=== PATIENT | male | born 1965 | race Two or more races ===

== ENCOUNTER 2023-09-06 20:08 | Emergency (ER) | payer MEDICAID, OTHER ==
[~2023-09-06] VITALS: Ht 154.9 cm; Wt 113.0 kg
[2023-09-07 00:28] VITALS: BP 118/69; PULSE 95; RESP 18; O2SAT 98
[2023-09-07] MEDS: HYDROcodone-ACET 5/325MG TAB PO ONE (00:49)
[2023-09-07] MEDS: ONDANSETRON ODT 4 MG TAB PO ONE (00:50)
== END 2023-09-07 00:56 | disposition home or self-care (01) ==
LOC: ER 20:08
DX: S46.912A Strain of unspecified muscle, fascia and tendon at shoulder and upper arm level, left arm, initial encounter (principal); I11.0 Hypertensive heart disease with heart failure; I50.9 Heart failure, unspecified; I25.10 Atherosclerotic heart disease of native coronary artery without angina pectoris; I25.2 Old myocardial infarction; E78.5 Hyperlipidemia, unspecified; G89.29 Other chronic pain; M54.50 Low back pain, unspecified; M25.562 Pain in left knee; M25.561 Pain in right knee; M79.642 Pain in left hand; M79.641 Pain in right hand; W05.0XXA Fall from non-moving wheelchair, initial encounter; Y93.89 Activity, other specified; Y92.89 Other specified places as the place of occurrence of the external cause; Y99.8 Other external cause status
CPT/HCPCS: 99283; Q0162

== ENCOUNTER 2023-09-09 18:32 | Emergency (ER) | payer MEDICAID ==
[~2023-09-09] VITALS: Ht 180.3 cm; Wt 109.0 kg
[2023-09-09 18:50] VITALS: BP 161/88; PULSE 99; RESP 18; TEMP 98.7; O2SAT 98
[2023-09-09] MEDS: HYDROcodone-ACET 10/325MG TAB PO ONE (20:38)
[2023-09-09] MEDS ORDERED: HYDR-4798 PO (21:30)
== END 2023-09-10 01:14 | disposition home or self-care (01) ==
LOC: ER 18:32
DX: M13.812 Other specified arthritis, left shoulder (principal); I11.0 Hypertensive heart disease with heart failure; I50.9 Heart failure, unspecified; J44.9 Chronic obstructive pulmonary disease, unspecified; E78.5 Hyperlipidemia, unspecified; F12.10 Cannabis abuse, uncomplicated; Z88.0 Allergy status to penicillin; Z88.8 Allergy status to other drugs, medicaments and biological substances; Z91.040 Latex allergy status; Z59.00 Homelessness unspecified
CPT/HCPCS: 73030

== ENCOUNTER 2023-12-02 22:34 | Emergency (ER) | payer MEDICAID ==
[~2023-12-02] VITALS: Ht 180.3 cm; Wt 109.0 kg
[~2023-12-02 22:34] MED LIST: HYDR-4798 PO
[2023-12-03 04:33] VITALS: BP 127/80; PULSE 73; RESP 16; TEMP 97.9; O2SAT 100
[2023-12-03] MEDS: HYDROcodone-ACET 10/325MG TAB PO ONE (04:36)
== END 2023-12-03 03:31 | disposition home or self-care (01) ==
LOC: ER 22:34
DX: M19.042 Primary osteoarthritis, left hand (principal); M19.041 Primary osteoarthritis, right hand; I11.0 Hypertensive heart disease with heart failure; I50.9 Heart failure, unspecified; J44.9 Chronic obstructive pulmonary disease, unspecified; I25.10 Atherosclerotic heart disease of native coronary artery without angina pectoris; I25.2 Old myocardial infarction; E78.5 Hyperlipidemia, unspecified; F15.90 Other stimulant use, unspecified, uncomplicated; Z59.00 Homelessness unspecified; Z88.0 Allergy status to penicillin; Z91.040 Latex allergy status; Z79.899 Other long term (current) drug therapy

== ENCOUNTER 2023-12-16 21:31 | Emergency (ER) | payer MEDICAID ==
[~2023-12-16] VITALS: Ht 180.3 cm; Wt 138.0 kg
[2023-12-16 22:20] VITALS: BP 130/84; PULSE 80; RESP 16; TEMP 98.1; O2SAT 100
[2023-12-16] MEDS: HYDROcodone-ACET 5/325MG TAB PO ONE (22:45)
== END 2023-12-17 06:24 | disposition home or self-care (01) ==
LOC: ER 21:31
DX: G89.29 Other chronic pain (principal); M79.642 Pain in left hand; M79.641 Pain in right hand; M19.90 Unspecified osteoarthritis, unspecified site; I25.10 Atherosclerotic heart disease of native coronary artery without angina pectoris; J44.9 Chronic obstructive pulmonary disease, unspecified; E78.5 Hyperlipidemia, unspecified; I11.0 Hypertensive heart disease with heart failure; I50.9 Heart failure, unspecified; I25.2 Old myocardial infarction; F12.10 Cannabis abuse, uncomplicated; Z88.0 Allergy status to penicillin; Z88.8 Allergy status to other drugs, medicaments and biological substances; Z91.040 Latex allergy status

== ENCOUNTER 2023-12-18 21:07 | Emergency (ER) | payer MEDICAID ==
[2023-12-18] MEDS: HYDROcodone-ACET 5/325MG TAB PO ONE (23:35)
[2023-12-18 23:45] VITALS: PULSE 90; RESP 18; O2SAT 100
== END 2023-12-18 23:43 | disposition home or self-care (01) ==
LOC: ER 21:07
DX: M19.042 Primary osteoarthritis, left hand (principal); M19.041 Primary osteoarthritis, right hand; I11.0 Hypertensive heart disease with heart failure; I50.9 Heart failure, unspecified; I25.10 Atherosclerotic heart disease of native coronary artery without angina pectoris; J44.9 Chronic obstructive pulmonary disease, unspecified; I25.2 Old myocardial infarction; M19.90 Unspecified osteoarthritis, unspecified site; F15.90 Other stimulant use, unspecified, uncomplicated; Z59.00 Homelessness unspecified; Z88.8 Allergy status to other drugs, medicaments and biological substances; Z79.899 Other long term (current) drug therapy; Z88.0 Allergy status to penicillin; Z91.040 Latex allergy status